=== PATIENT | female | born 1955 | race African-American/Black ===

== ENCOUNTER 2017-05-28 20:13 | Observation (INO) | payer OTHER ==
[~2017-05-28] VITALS: Ht 156.2 cm; Wt 90.3 kg
[2017-05-28] MEDS ORDERED: ALBUTEROL (0.083%) 2.5MG/3ML NEB HHN STA (20:34)
[2017-05-28] MEDS ORDERED: METHYLPREDNISOLONE SOD SUCC 125 MG/2 ML VIAL IV STA (20:34)
[2017-05-28] MEDS ORDERED: IPRATROPIUM BROMIDE (0.02%) 0.5MG/2.5ML NEB HHN STA ×2 (20:34→22:56)
[2017-05-28] MEDS ORDERED: ALBUTEROL (0.083%) 2.5MG/3ML NEB ONE (20:41)
[2017-05-28] MEDS ORDERED: IPRATROPIUM BROMIDE (0.02%) 0.5MG/2.5ML NEB ONE (20:42)
[2017-05-28] MEDS ORDERED: MAGNESIUM 2 G PREMIX 50 ML IV ONE (20:45)
[2017-05-28] MEDS ORDERED: LEVOFLOXACIN 750MG PREMIX 150 ML IV ONE (20:45)
[2017-05-28 21:51] LABS: CHLORIDE 106 mEq/L (98-107); PARTIAL THROMBOPLASTIN TIME 25.9 sec (23.4-31.0)
[2017-05-28 21:55] LABS: CARBON DIOXIDE 28 mEq/L (21-32)
[2017-05-28 22:01] LABS: CREATINE KINASE 115 IU/L (26-192); CREATINE KINASE MB FRACTION 1.5 ng/mL (0.5-3.6); TROPONIN I < 0.02 ng/mL (0.00-0.04)
[2017-05-28 22:11] LABS: BASOPHILS % 0.6 % (0.0-2.0); EOSINOPHILS % 0.4 % (0.0-5.0); HEMATOCRIT. 39.9 % (36.0-48.0); HEMOGLOBIN. 13.1 g/dL (12.0-16.0); LYMPHOCYTES % 42.3 % (20.0-50.0); MEAN CORPUSCULAR HEMOGLOBIN 29.9 pg (28.0-32.0); MEAN CORPUSCULAR VOLUME 91.1 fL (81.0-99.0); MEAN PLATELET VOLUME 8.1 fl (7.4-10.4); MONOCYTES % 9.3 % (2.0-8.0); NEUTROPHILS % 47.4 % (40.0-76.0); PLATELET 213 x1000/uL (130-400); RED BLOOD CELL COUNT 4.38 mill/uL (4.2-5.4); RED CELL DISTRIBUTION WIDTH 14.5 % (11.6-14.6)
[2017-05-28] MEDS ORDERED: SODIUM CHLORIDE 0.9% 1,000 ML IV ONE (23:19)
[2017-05-28] MEDS ORDERED: PROMETHAZINE HCL 25MG SUPP PR ONE (23:30)
[2017-05-29] MEDS ORDERED: DOCUSATE SODIUM 100MG CAPSULE PO PRN (01:00)
[2017-05-29] MEDS ORDERED: PROMETHAZINE+CODEINE 6.25-10MG/5ML PO SCH (01:00)
[2017-05-29] MEDS ORDERED: ENOXAPARIN 40MG/0.4ML SYR SUBCUT SCH (01:00)
[2017-05-29] MEDS ORDERED: ONDANSETRON HCL 4MG/2ML VIAL IV PRN (01:00)
[2017-05-29] MEDS ORDERED: PROMETHAZINE HCL 6.25 MG/5 ML 118ML PO SCH (02:00)
[2017-05-29 05:50] VITALS: BP 129/74
[2017-05-29] MEDS ORDERED: DEXT 5%/0.45% NACL 1000ML 1,000 ML IV SCH (06:09)
[2017-05-29] MEDS: ACETAMINOPHEN 325MG TABLET PO PRN ×2 (06:55→21:28)
[2017-05-29] MEDS: METHYLPREDNISOLONE SOD SUCC 40 MG/ML VIAL IV SCH ×3 (06:55→21:17)
[2017-05-29] MEDS: PANTOPRAZOLE 40MG DR TABLET PO SCH (06:55)
[2017-05-29 07:58] LABS: HEMATOCRIT. 37.7 % (36.0-48.0); HEMOGLOBIN. 12.3 g/dL (12.0-16.0); MEAN CORPUSCULAR HEMOGLOBIN 29.4 pg (28.0-32.0); MEAN CORPUSCULAR VOLUME 90.7 fL (81.0-99.0); MEAN PLATELET VOLUME 7.9 fl (7.4-10.4); PLATELET 218 x1000/uL (130-400); RED BLOOD CELL COUNT 4.16 mill/uL (4.2-5.4); RED CELL DISTRIBUTION WIDTH 14.1 % (11.6-14.6)
[2017-05-29 08:00] VITALS: BP 133/70
[2017-05-29 08:29] LABS: CARBON DIOXIDE 23 mEq/L (21-32); CHLORIDE 108 mEq/L (98-107); HDL CHOLESTEROL 75 mg/dL (40-59); LDL CHOLESTEROL 75 mg/dL (5-100)
[2017-05-29] MEDS: ENOXAPARIN 30MG/0.3ML SYR SUBCUT SCH ×2 (09:42→21:18)
[2017-05-29] MEDS ORDERED: TRAMADOL 50MG TABLET PO PRN (10:30)
[2017-05-29] MEDS: HYDROCODONE/ACETAMINOPHEN 5/325MG TABLET PO PRN ×2 (11:56→18:12)
[2017-05-29 12:00] VITALS: BP 133/74
[2017-05-29] MEDS: SODIUM CHLORIDE 0.45% 1,000 ML IV SCH (15:00)
[2017-05-29] MEDS: IPRATROPIUM/ALBUTEROL 0.5-3(2.5)MG/3ML NEB INH SCH ×2 (15:13→20:00)
[2017-05-29 15:53] VITALS: BP 130/64
[2017-05-29 20:00] VITALS: BP 136/77
[2017-05-29] MEDS ORDERED: LEVOFLOXACIN 500MG PREMIX 100 ML IV SCH (21:00)
[2017-05-29] MEDS ORDERED: NON FORMULARY PATIENT HOME MED EA XX SCH (22:15)
[2017-05-29] MEDS: GUAIFENESIN/CODEINE 100-10MG/5ML UDC PO PRN (22:34)
[2017-05-30] VITALS: BP 104/56
[2017-05-30] MEDS: IPRATROPIUM/ALBUTEROL 0.5-3(2.5)MG/3ML NEB INH SCH ×4 (00:06→11:15)
[2017-05-30] MEDS: HYDROCODONE/ACETAMINOPHEN 5/325MG TABLET PO PRN (00:10)
[2017-05-30 04:00] VITALS: BP 119/63
[2017-05-30] MEDS: PANTOPRAZOLE 40MG DR TABLET PO SCH (05:49)
[2017-05-30] MEDS: METHYLPREDNISOLONE SOD SUCC 40 MG/ML VIAL IV SCH ×2 (05:50→13:25)
[2017-05-30] MEDS: SODIUM CHLORIDE 0.45% 1,000 ML IV SCH (05:50)
[2017-05-30] MEDS ORDERED: PNEUMOCOCCAL 23-VAL P-SAC VAC 0.5 ML IM ONE (06:00)
[2017-05-30] MEDS ORDERED: INFLUENZA VIRUS VACCINE 0.5ML SYR IM ONE (06:00)
[2017-05-30 08:16] VITALS: BP 116/66
[2017-05-30 09:15] LABS: PLATELET ESTIMATE NORMAL
[2017-05-30] MEDS: ENOXAPARIN 30MG/0.3ML SYR SUBCUT SCH (09:24)
[2017-05-30] MEDS: GUAIFENESIN/CODEINE 100-10MG/5ML UDC PO PRN (09:24)
[2017-05-30] MEDS: ACETAMINOPHEN 325MG TABLET PO PRN (09:25)
[2017-05-30 12:02] VITALS: BP 105/70
[2017-05-30] MEDS ORDERED: FUROSEMIDE 40MG/4ML VIAL IVP NR (13:15)
[2017-05-30 13:49] VITALS: BP 105/70
[2017-05-30] MEDS ORDERED: LEVOFLOXACIN 500MG PREMIX 100 ML IV SCH (21:00)
[2017-05-31] MEDS ORDERED: LEVOFLOXACIN 500MG TABLET PO SCH (21:00)
== END 2017-05-30 14:25 | disposition home or self-care (01) ==
LOC: ER 22:45 → INTOOBSV 23:38 → 5WST 23:38 → EDBEDREQTM 23:41 → EDBEDREQ 23:41 → ENRESERV 05-29 03:44
PROVIDERS: ADMIT Internal Medicine; ATTEND Internal Medicine
DX: J45.901 Unspecified asthma with (acute) exacerbation (principal); J20.9 Acute bronchitis, unspecified; I10 Essential (primary) hypertension; F17.210 Nicotine dependence, cigarettes, uncomplicated; Z90.49 Acquired absence of other specified parts of digestive tract; Z90.710 Acquired absence of both cervix and uterus; Z23 Encounter for immunization
CPT/HCPCS: 36415; 71010; 80053; 80061; 82550; 82553; 83605; 83690; 83880; 84439; 84443; 84484; 85025; 85379; 85610; 85730; 87040; 90471; 90472; 93005; 94640; 94644; 94664; 96361; 96365; 96366; 96368; 96372; 96375; 96376; 99291; G0378; J1650; J1940; J1956; J2920; J2930; J3475; J7030; J7611; J7620; 90686; 90732; Q0169

== ENCOUNTER 2020-02-26 11:28 | Emergency (ER) | payer MEDICARE, OTHER ==
[~2020-02-26] VITALS: Ht 165.1 cm; Wt 93.0 kg
[2020-02-26] MEDS ORDERED: ONDANSETRON 4MG ODT PO ONE (13:00)
[2020-02-26] MEDS ORDERED: MORPHINE SULFATE 10 MG/ML CPJ IM ONE (13:00)
[2020-02-26 13:18] VITALS: BP 136/76
== END 2020-02-26 13:39 | disposition home or self-care (01) ==
LOC: ER 11:28
DX: M54.9 Dorsalgia, unspecified (principal); G89.29 Other chronic pain; J44.9 Chronic obstructive pulmonary disease, unspecified; J40 Bronchitis, not specified as acute or chronic; Z90.710 Acquired absence of both cervix and uterus; Z98.890 Other specified postprocedural states
CPT/HCPCS: 96372; 99283; J2270; Q0162

== ENCOUNTER → 2020-02-26 | Outpatient (CLI) | payer MEDICARE, OTHER | END | disposition home or self-care (01) | LOC: MRI 09:27 | PROVIDERS: ATTEND Neurological Surgery | DX: M47.812 Spondylosis without myelopathy or radiculopathy, cervical region (principal); M43.15 Spondylolisthesis, thoracolumbar region; M25.78 Osteophyte, vertebrae; M47.815 Spondylosis without myelopathy or radiculopathy, thoracolumbar region; M48.05 Spinal stenosis, thoracolumbar region; M51.36 Other intervertebral disc degeneration, lumbar region | CPT/HCPCS: 72141; 72148 ==

== ENCOUNTER 2021-04-18 09:49 | Emergency (ER) | payer MEDICARE, OTHER, MEDICAID ==
[~2021-04-18] VITALS: Ht 154.9 cm; Wt 80.0 kg
[2021-04-18 10:05] VITALS: BP 135/85
[2021-04-18] MEDS ORDERED: CEPH500C2 MT (11:03)
== END 2021-04-18 11:27 | disposition home or self-care (01) ==
LOC: ER 09:49
DX: L03.031 Cellulitis of right toe (principal); J44.9 Chronic obstructive pulmonary disease, unspecified; Z90.49 Acquired absence of other specified parts of digestive tract; Z90.710 Acquired absence of both cervix and uterus
CPT/HCPCS: 99283